=== PATIENT | male | born 1965 | race Caucasian/White ===

== ENCOUNTER 2020-12-30 11:18 | Inpatient (IN) | payer MEDICARE ==
[~2020-12-30] VITALS: Ht 185.4 cm; Wt 124.9 kg
[~2020-12-30 11:18] MED LIST: ASPIRIN EC81 MG PO; CHRONULAC20 GM/30 M PO; FOLIC ACID 1 MG1 MG PO; LIPITOR40 MG PO; LOPRESSOR 25 MG25 MG PO; METHYLPHENIDATE20 MG PO; TAB-A-VITE1 EACH PO; VITAMIN B-1100 M1 PO
[2020-12-30 12:08] LABS: RED BLOOD COUNT 4.34 M/UL (4.20-5.50); WHITE BLOOD COUNT 14.4 K/UL (4.5-11.0)
[2020-12-30 12:22] LABS: BUN/CREATININE RATIO 19 (0-10)
[2020-12-31 04:16] LABS: BUN/CREATININE RATIO 21 (0-10)
[2020-12-31 04:30] LABS: ACINETOBACTER BAUMANNII Not Detected (Negative); CANDIDA ALBICANS Not Detected (Negative); CANDIDA KRUSEI Not Detected (Negative); CANDIDA TROPICALIS Not Detected (Negative); ENTEROCOCCUS Not Detected (Negative); ESCHERICHIA COLI Not Detected (Negative); HAEMOPHILUS INFLUENZAE Not Detected (Negative); KLEBSIELLA OXYTOCA Not Detected (Negative); KLEBSIELLA PNEUMONIAE Not Detected (Negative); KPC-CARBAPENEM-RESISTANCE GENE Not Detected (Negative); PROTEUS Not Detected (Negative); PSEUDOMONAS AERUGINOSA Not Detected (Negative); SERRATIA MARCESANS Not Detected (Negative); STREP AGALACTIAE (GROUP B) Not Detected (Negative); STREP PYOGENES (GROUP A) Not Detected (Negative); STREPTOCOCCUS Not Detected (Negative); mecA (METHICILLIN RESIST GENE Not Detected (Negative); vanA/B (VANCOMYCIN RESIST GENE Not Detected (Negative)
[2020-12-31 04:31] LABS: STAPHYLOCOCCUS DETECTED (Negative)
[2020-12-31 04:32] LABS: STAPHYLOCOCCUS AUREUS DETECTED (Negative)
[2020-12-31 04:47] LABS: HEMOGLOBIN 12.8 gm/dl (14.0-17.5)
[2020-12-31 04:48] LABS: WHITE BLOOD COUNT 10.5 K/UL (4.5-11.0)
[2020-12-31 05:09] LABS: HBSAG SCREEN Negative (Negative); HEP A AB, IGM Negative (Negative); HEP B CORE AB, IGM Negative (Negative); HEP C VIRUS AB <0.1 (0.0-0.9)
[2020-12-31] MEDS ORDERED: ADVIL200 M1 PO (12:36)
[2020-12-31] MEDS ORDERED: METHYLPHENIDATE20 M2 PO (12:37)
[2021-01-01 07:40] LABS: HEMOGLOBIN 16.1 gm/dl (14.0-17.5); RED BLOOD COUNT 4.97 M/UL (4.20-5.50); WHITE BLOOD COUNT 17.3 K/UL (4.5-11.0)
[2021-01-01 11:11] LABS: HEMOGLOBIN 13.9 gm/dl (14.0-17.5); RED BLOOD COUNT 4.32 M/UL (4.20-5.50); WHITE BLOOD COUNT 17.7 K/UL (4.5-11.0)
[2021-01-01 11:34] LABS: BUN/CREATININE RATIO 27 (0-10)
[2021-01-02 05:53] LABS: HEMOGLOBIN 11.6 gm/dl (14.0-17.5); RED BLOOD COUNT 3.69 M/UL (4.20-5.50)
[2021-01-03 05:35] LABS: HEMOGLOBIN 10.5 gm/dl (14.0-17.5); WHITE BLOOD COUNT 9.5 K/UL (4.5-11.0)
[2021-01-03 05:37] LABS: RED BLOOD COUNT 3.29 M/UL (4.20-5.50)
[2021-01-03 08:14] LABS: BUN/CREATININE RATIO 27 (0-10)
--- NOTE | 2021-01-03 17:59 | NUR ---
ALL WOUND DRESSINGS CHANGED AND WOUNDS CLEANED.
[2021-01-04 06:24] LABS: BUN/CREATININE RATIO 25 (0-10)
--- NOTE | 2021-01-04 21:59 | NUR ---
2155- CALLED XRAY TO CONFIRM XRAY HAD BEEN PERFORMED. [employer] TEACHER ASSISTANT CONFIRMED THEY XRAYED PT AT APPROXIMATELY 2100.
--- NOTE | 2021-01-05 03:05 | NUR ---
0300- DOBHOFF ADVANCED PER MD ORDER BY SHENG SHI RN
[2021-01-05 12:55] LABS: BUN/CREATININE RATIO 24 (0-10)
[2021-01-05 12:55] LABS: HEMOGLOBIN 12.3 gm/dl (14.0-17.5); WHITE BLOOD COUNT 11.6 K/UL (4.5-11.0)
[2021-01-05 12:56] LABS: RED BLOOD COUNT 3.83 M/UL (4.20-5.50)
[2021-01-06 09:02] LABS: HEMOGLOBIN 11.9 gm/dl (14.0-17.5); RED BLOOD COUNT 3.64 M/UL (4.20-5.50); WHITE BLOOD COUNT 10.8 K/UL (4.5-11.0)
[2021-01-06 09:43] LABS: BUN/CREATININE RATIO 23 (0-10)
[2021-01-06 15:56] LABS: ACINETOBACTER BAUMANNII Not Detected (Negative); CANDIDA ALBICANS Not Detected (Negative); CANDIDA KRUSEI Not Detected (Negative); CANDIDA TROPICALIS Not Detected (Negative); ENTEROCOCCUS Not Detected (Negative); ESCHERICHIA COLI Not Detected (Negative); HAEMOPHILUS INFLUENZAE Not Detected (Negative); KLEBSIELLA OXYTOCA Not Detected (Negative); KLEBSIELLA PNEUMONIAE Not Detected (Negative); KPC-CARBAPENEM-RESISTANCE GENE Not Detected (Negative); PROTEUS Not Detected (Negative); PSEUDOMONAS AERUGINOSA Not Detected (Negative); SERRATIA MARCESANS Not Detected (Negative); STAPHYLOCOCCUS AUREUS Not Detected (Negative); STREP AGALACTIAE (GROUP B) Not Detected (Negative); STREP PYOGENES (GROUP A) Not Detected (Negative); STREPTOCOCCUS Not Detected (Negative); mecA (METHICILLIN RESIST GENE Not Detected (Negative); vanA/B (VANCOMYCIN RESIST GENE Not Detected (Negative)
[2021-01-06 17:15] LABS: STAPHYLOCOCCUS DETECTED (Negative)
[2021-01-07 02:25] LABS: HEMOGLOBIN 12.2 gm/dl (14.0-17.5); RED BLOOD COUNT 3.69 M/UL (4.20-5.50)
[2021-01-07 02:28] LABS: WHITE BLOOD COUNT 13.9 K/UL (4.5-11.0)
[2021-01-07 02:54] LABS: BUN/CREATININE RATIO 25 (0-10)
--- NOTE | 2021-01-07 06:06 | NUR ---
Radiology performed chest x-ray this am. States patient may have pulled on dobhoff and possibly not in correct position. Tube feedings stopped at this time. Will let MD look at image of x-ray to confirm placement prior to starting tube feedings back.
--- NOTE | 2021-01-07 06:08 | NUR ---
Assesed patient at this time. Found rectal tube not in rectum laying in the bed. Bed soaked in large amounts of stool. Cleaned patient up, applied new dressings to wounds and inserted new rectal tube at this time.
--- NOTE | 2021-01-07 06:10 | NUR ---
Patient trying to pull at central line, dobhoff and NG tube at this time. Patient seems very agitated/anxious. CIWA protocol initiated again at this time. 4mg Ativan given to calm patient
[2021-01-08 04:23] LABS: HEMOGLOBIN 11.5 gm/dl (14.0-17.5); RED BLOOD COUNT 3.51 M/UL (4.20-5.50); WHITE BLOOD COUNT 10.6 K/UL (4.5-11.0)
[2021-01-08 04:45] LABS: BUN/CREATININE RATIO 24 (0-10)
[2021-01-08 13:20] LABS: BUN/CREATININE RATIO 25 (0-10)
[2021-01-09 05:54] LABS: HEMOGLOBIN 11.3 gm/dl (14.0-17.5); RED BLOOD COUNT 3.43 M/UL (4.20-5.50); WHITE BLOOD COUNT 10.7 K/UL (4.5-11.0)
[2021-01-09 06:15] LABS: BUN/CREATININE RATIO 28 (0-10)
[2021-01-10 05:11] LABS: HEMOGLOBIN 11.2 gm/dl (14.0-17.5); RED BLOOD COUNT 3.41 M/UL (4.20-5.50); WHITE BLOOD COUNT 9.6 K/UL (4.5-11.0)
[2021-01-10 05:58] LABS: BUN/CREATININE RATIO 25 (0-10)
[2021-01-11 07:25] LABS: HEMOGLOBIN 10.3 gm/dl (14.0-17.5); RED BLOOD COUNT 3.17 M/UL (4.20-5.50); WHITE BLOOD COUNT 9.2 K/UL (4.5-11.0)
[2021-01-11 07:59] LABS: BUN/CREATININE RATIO 23 (0-10)
--- NOTE | 2021-01-11 19:47 | NUR ---
DURING BEDSIDE REPORT IT WAS NOTED THAT THE PATIENT'S NOSE APPEARED RED AND SWOLLEN. PT DOES HAVE A DOBHOF AND HAD BEEN PULLING IT AT RECENTLY. SIXTO NOTIFIED DR. ARELLANO WHO ORDERED A CT OF THE FACE FOR THE AM. WILL MONITOR PT AND USE DISTRACTION MUCH POSSIBLE.
--- NOTE | 2021-01-12 18:33 | NUR ---
DOBHOFF UNABLE TO BE FLUSHED. NOTIFIED AND ORDERS NOTED TO REMOVE DOBHOFF AND INSERT NGT R/T FREQUENT PROBLEMS WITH DOBHOFF. BRIDLE REMOVED AND DOBHOFFED REMOVED. DOBHOFF DIFFICULT TO REMOVE. #16 SALEM SUMP NGT PLACED VIA RIGHT NARE WITHOUT DIFF. PT TOLERATED WELL.
[2021-01-13 04:36] LABS: HEMOGLOBIN 10.1 gm/dl (14.0-17.5); RED BLOOD COUNT 3.08 M/UL (4.20-5.50); WHITE BLOOD COUNT 8.5 K/UL (4.5-11.0)
[2021-01-13 04:51] LABS: BUN/CREATININE RATIO 18 (0-10)
[2021-01-14 06:50] LABS: RED BLOOD COUNT 3.05 M/UL (4.20-5.50); WHITE BLOOD COUNT 8.3 K/UL (4.5-11.0)
[2021-01-14 07:20] LABS: BUN/CREATININE RATIO 16 (0-10)
[2021-01-15 07:20] LABS: BUN/CREATININE RATIO 15 (0-10)
[2021-01-16 07:32] LABS: HEMOGLOBIN 9.3 gm/dl (14.0-17.5); RED BLOOD COUNT 2.87 M/UL (4.20-5.50)
[2021-01-16 07:35] LABS: WHITE BLOOD COUNT 6.1 K/UL (4.5-11.0)
[2021-01-16 07:46] LABS: BUN/CREATININE RATIO 14 (0-10)
[2021-01-17 07:35] LABS: BUN/CREATININE RATIO 13 (0-10)
[2021-01-17] MEDS ORDERED: LEVOTHYROXINE25 MCG PO (12:22)
[2021-01-17] MEDS ORDERED: CHRONULAC20 GM/30 M NG (12:22)
[2021-01-17] MEDS ORDERED: LOPRESSOR 25 MG25 MG PO (12:22)
[2021-01-17] MEDS ORDERED: ALDACTONE100 MG PO (12:22)
[2021-01-17] MEDS ORDERED: FOLIC ACID 1 MG1 MG PO (12:22)
[2021-01-17] MEDS ORDERED: FUROSEMIDE40 MG PO (12:22)
[2021-01-17] MEDS ORDERED: XIFAXAN 550 MG550 MG PO (12:22)
[2021-01-17] MEDS ORDERED: NYSTOP60 GM TOP (12:22)
[2021-01-17] MEDS ORDERED: IPRAT-ALBUT 0.5-3 ML NEB (12:22)
[2021-01-18 07:17] LABS: BUN/CREATININE RATIO 11 (0-10)
== END 2021-01-20 19:34 | DRG 871 ==
LOC: ER1 11:18 → CDU 17:36 → CCU 17:36 → MED SURG 4 17:36 → PROG CARE 12-31 15:07 → CCU 12-31 21:00 → MED SURG 4 01-04 18:42
PROVIDERS: Internal Medicine; Internal Medicine Pulmonary Disease; Physician Assistant; Student in an Organized Health Care Education/Training Program; ADMIT Internal Medicine
PROC: 02HV33Z Insertion of Infusion Device into Superior Vena Cava, Percutaneous Approach (ICD-10-PCS; 2021-01-01)
PROC: B548ZZA Ultrasonography of Superior Vena Cava, Guidance (ICD-10-PCS; 2021-01-01)
PROC: B24BZZ4 Ultrasonography of Heart with Aorta, Transesophageal (ICD-10-PCS; principal; 2021-01-05)
DX: A41.02 Sepsis due to Methicillin resistant Staphylococcus aureus (principal); K72.00 Acute and subacute hepatic failure without coma; Z66 Do not resuscitate; Z20.822 Contact with and (suspected) exposure to COVID-19; G93.41 Metabolic encephalopathy; J69.0 Pneumonitis due to inhalation of food and vomit; J96.01 Acute respiratory failure with hypoxia; F10.139 Alcohol abuse with withdrawal, unspecified; E87.2 Acidosis; E87.1 Hypo-osmolality and hyponatremia; K76.6 Portal hypertension; E66.2 Morbid (severe) obesity with alveolar hypoventilation; E88.09 Other disorders of plasma-protein metabolism, not elsewhere classified; E78.5 Hyperlipidemia, unspecified; F41.9 Anxiety disorder, unspecified; K70.11 Alcoholic hepatitis with ascites; F32.9 Major depressive disorder, single episode, unspecified; T38.0X5A Adverse effect of glucocorticoids and synthetic analogues, initial encounter; E87.6 Hypokalemia; E11.65 Type 2 diabetes mellitus with hyperglycemia; I11.0 Hypertensive heart disease with heart failure; F98.8 Other specified behavioral and emotional disorders with onset usually occurring in childhood and adolescence; D69.6 Thrombocytopenia, unspecified; K70.31 Alcoholic cirrhosis of liver with ascites; D64.9 Anemia, unspecified; E87.70 Fluid overload, unspecified; R79.1 Abnormal coagulation profile; I07.1 Rheumatic tricuspid insufficiency; I50.9 Heart failure, unspecified; L89.326 Pressure-induced deep tissue damage of left buttock; L89.320 Pressure ulcer of left buttock, unstageable; L89.310 Pressure ulcer of right buttock, unstageable; L89.316 Pressure-induced deep tissue damage of right buttock; L89.622 Pressure ulcer of left heel, stage 2; L89.612 Pressure ulcer of right heel, stage 2; R65.20 Severe sepsis without septic shock; L89.010 Pressure ulcer of right elbow, unstageable; S51.011A Laceration without foreign body of right elbow, initial encounter; S90.821A Blister (nonthermal), right foot, initial encounter; Z68.36 Body mass index [BMI] 36.0-36.9, adult; Z79.4 Long term (current) use of insulin; Z80.9 Family history of malignant neoplasm, unspecified; Z79.01 Long term (current) use of anticoagulants; Z79.82 Long term (current) use of aspirin
CPT/HCPCS: ECHO; 36415; 36600; 70450; 70486; 70551; 71045; 72125; 74018; 76705; 80048; 80053; 80074; 80076; 80202; 81001; 82105; 82140; 82150; 82248; 82550; 82553; 82607; 82746; 82803; 82962; 83036; 83605; 83690; 83735; 83874; 83880; 84100; 84132; 84439; 84443; 84484; 85007; 85025; 85027; 85384; 85610; 85730; 86140; 87040; 87077; 87086; 87150; 87186; 92507; 92526; 92610; 93005; 93306; 93880; 94640; 94660; 94760; 97110; 97110-GP-CQ; 97161; 97164; 97167; 97530; 97530-GP-CQ; 99285; A6212; A6243; C9113; G0378; G0480; J1205; J1335; J1450; J1650; J1940; J2060; J2185; J2543; J3370; J3411; J3475; J3480; J3486; J7030; J7070; P9047; U0002